=== PATIENT | female | born 2000 | race Caucasian/White ===

== ENCOUNTER 2020-06-01 18:01 | Emergency (ER) | payer BC ==
[2020-06-01] MEDS ORDERED: Diphtheria,Pertussis(Acell),Tetanus Vaccine 0.5 ML Syringe IM ONE (18:24)
--- NOTE | 2020-06-01 18:46 | EDM.PDOC ---
ED HPI GENERAL MEDICAL PROBLEM - General Chief Complaint: Skin Complaint Stated Complaint: FISH HOOK LEFT FINGER Time Seen by Provider: 06/01/20 18:39 Source of Information: Reports: Patient History Limitations: Reports: No Limitations - History of Present Illness INITIAL COMMENTS - FREE TEXT/NARRATIVE: Latonya is a 19-year-old female presenting to the ED for removal of a fishhook from her left index finger. Patient was fishing for son fish today and was removing the fish from the hole when the fish unexpectedly spent the hook causing her to going to her left index finger. The patient tried to remove the hook unsuccessfully. In addition, the patient is due for a tetanus booster as her last was in 2005. She denies any numbness or change in range of motion of the finger. - Related Data Allergies Allergy/AdvReac Type Severity Reaction Status Date / Time No Known Allergies Allergy Verified 06/01/20 18:30 Home Meds: Home Meds Multivitamin [Multi-Vitamin Daily] 1 tab PO DAILY 06/02/14 [History] Past Medical History - Past Surgical History Female Surgical History: Reports: D&C Social & Family History - Tobacco Use Tobacco Use Status *Q: Never Tobacco User ED ROS GENERAL - Review of Systems Review Of Systems: See Below Constitutional: Reports: No Symptoms HEENT: Reports: No Symptoms Respiratory: Reports: No Symptoms Cardiovascular: Reports: No Symptoms Skin: Reports: Wound ([place] in the proximal volar pad of the left index finger.) Neurological: Reports: No Symptoms ED EXAM, SKIN/RASH Exam: See Below Exam Limited By: No Limitations General Appearance: Alert, WD/WN, No Apparent Distress Extremities: Normal Range of Motion, Normal Capillary Refill (Patient has a fishhook in the volar aspect of the proximal pad of the left index finger. She has good range of motion. There is no change in distal sensation or capillary refill.) ED SKIN PROCEDURES - Foreign Body Removal Consent Obtained:: Patient Performing Doctor:: Dre Segal Foreign Body Other Location Comment:: [place] in the volar proximal pad of the left index finger Anesthesia Type: Local Anesthesia Other:: 2 cc of 1% lidocaine Findings:: The fishhook was removed with downward pressure and gentle rotation disengaging the anne from the soft tissue. There were no complications with the removal. A dressing was applied over the wound. Patient tolerated the procedure without incident. Complications:: No Course - Vital Signs Last Recorded V/S: Last Vital Signs Temp 36.8 C 06/01/20 18:35 Pulse 79 06/01/20 18:35 Resp 16 06/01/20 18:35 BP 131/76 06/01/20 18:35 Pulse Ox 98 06/01/20 18:35 - Orders/Labs/Meds Orders: Active Orders 24 hr Category Date Time Status Vaccines to be Administered [RC] PER UNIT ROUTINE Care 06/01/20 18:24 Active Meds: Medications Discontinued Medications Generic Name Dose Route Start Last Admin Trade Name Keenan PRN Reason Stop Dose Admin Diphtheria/Tetanus/Acell Pertussis 0.5 ml 06/01/20 18:24 06/01/20 18:36 Boostrix IM 06/01/20 18:25 0.5 ml .ONCE ONE Administration Lidocaine HCl 5 ml 06/01/20 18:23 06/01/20 18:36 Xylocaine-Mpf 1% INJECT 06/01/20 18:24 5 ml ONETIME ONE Administration Departure - Departure Time of Disposition: 18:47 Disposition: Home, Self-Care 01 Condition: Good Clinical Impression: Foreign body of left index finger - Discharge Information *PRESCRIPTION DRUG MONITORING PROGRAM REVIEWED*: Not Applicable *COPY OF PRESCRIPTION DRUG MONITORING REPORT IN PATIENT DEVYN: Not Applicable Instructions: Hand or Foot Foreign Body, Adult Referrals: PCP,None [Primary Care Provider] - Care Plan Goals: Patient may take ibuprofen or Tylenol for pain control. We will put her on cephalexin 500 mg 3 times a day for 5 days to prevent infection. Indications return to the ED were discussed and all questions were answered prior to discharge. Sepsis Event Note (ED) - Evaluation Sepsis Screening Result: No Definite Risk - Focused Exam Vital Signs: Vital Signs Temp Pulse Resp BP Pulse Ox 06/01/20 18:35 36.8 C 79 16 131/76 98 06/01/20 18:21 36.8 C 79 16 131/76 98 - My Orders Last 24 Hours: My Active Orders 06/01/20 18:24 Vaccines to be Administered [RC] PER UNIT ROUTINE - Assessment/Plan Last 24 Hours: My Active Orders 06/01/20 18:24 Vaccines to be Administered [RC] PER UNIT ROUTINE
== END 2020-06-01 18:58 | disposition home or self-care (01) ==
LOC: JP.ED 18:01
DX: S60.451A Superficial foreign body of left index finger, initial encounter (principal); Z23 Encounter for immunization; W45.8XXA Other foreign body or object entering through skin, initial encounter
CPT/HCPCS: 90471; 90715; 99283; J2001